=== PATIENT | female | born 1960 | race Caucasian/White ===

== ENCOUNTER 2017-07-03 14:40 | Emergency (ER) | payer OTHER ==
[~2017-07-03] VITALS: Ht 165.1 cm; Wt 106.8 kg
[~2017-07-03 14:40] MED LIST: AMLO5TAB2 PO; ASPI-621 PO; ASPI325T17 PO; CLOP75TA52 PO/NG; INSU100V8 SQ; LEVO150T; LEVO175T2 PO; LINA5TAB; LINAGLIPTIN; LOSA1TAB7 PO; METF-163 PO; SIMV20TA3 PO
[2017-07-03 14:43] VITALS: BP 157/82
[2017-07-03] MEDS ORDERED: LIDOCAINE 1%, 20ML SQ ONE (15:30)
[2017-07-03] MEDS ORDERED: DIPH,PERTUSS(ACELL),TET VAC/PF 0.5 ML IM-VACC ONE ×2 (15:30→15:49)
[2017-07-03] MEDS ORDERED: LIDOCAINE 1%, 20ML ONE (15:48)
[2017-07-03] MEDS ORDERED: BACITRACIN ZINC OINT 500U/GM, 0.9 GM ONE (17:02)
== END 2017-07-03 17:26 | disposition home or self-care (01) ==
LOC: ED 17:10
DX: S91.114A Laceration without foreign body of right lesser toe(s) without damage to nail, initial encounter (principal); S61.214A Laceration without foreign body of right ring finger without damage to nail, initial encounter; S60.151A Contusion of right little finger with damage to nail, initial encounter; E11.9 Type 2 diabetes mellitus without complications; I10 Essential (primary) hypertension; E06.3 Autoimmune thyroiditis; F32.9 Major depressive disorder, single episode, unspecified; W23.0XXA Caught, crushed, jammed, or pinched between moving objects, initial encounter; Z79.01 Long term (current) use of anticoagulants; Z79.82 Long term (current) use of aspirin; Z86.73 Personal history of transient ischemic attack (TIA), and cerebral infarction without residual deficits; X58.XXXA Exposure to other specified factors, initial encounter; Y93.89 Activity, other specified; Y99.8 Other external cause status; Y92.69 Other specified industrial and construction area as the place of occurrence of the external cause
CPT/HCPCS: 12002; 73130; 90471; 90715; 99284; J3490

== ENCOUNTER 2017-10-29 09:10 | Day surgery (SDC) | payer BC | END 2017-10-29 10:43 | LOC: CACL 09:10 | PROVIDERS: ATTEND Internal Medicine Cardiovascular Disease | DX: Z45.09 Encounter for adjustment and management of other cardiac device (principal); I63.9 Cerebral infarction, unspecified; I10 Essential (primary) hypertension; E11.9 Type 2 diabetes mellitus without complications; E03.9 Hypothyroidism, unspecified; K58.9 Irritable bowel syndrome, unspecified; E78.2 Mixed hyperlipidemia; Z79.82 Long term (current) use of aspirin; Z79.84 Long term (current) use of oral hypoglycemic drugs | CPT/HCPCS: 33284 ==

== ENCOUNTER 2020-02-07 06:24 | Emergency (ER) | payer BC, OTHER ==
[~2020-02-07] VITALS: Ht 162.6 cm; Wt 104.6 kg
[~2020-02-07 06:24] MED LIST changes: +AMLO-150 PO; -AMLO5TAB2 PO; -ASPI-621 PO; +ASPI81TA45 PO; +SIMV20TA19 PO; -SIMV20TA3 PO
[2020-02-07] MEDS ORDERED: DIAZEPAM 5 MG TABLET ONE (06:57)
[2020-02-07] MEDS ORDERED: HYDROmorphone 1 MG/ML, 1ML INJ ONE ×2 (06:57→08:53)
[2020-02-07] MEDS ORDERED: HYDROmorphone 1 MG/ML, 1ML INJ IM ONE (07:00)
[2020-02-07] MEDS ORDERED: DIAZEPAM 5 MG TABLET PO ONE (07:00)
--- NOTE | 2020-02-07 07:11 | NUR ---
PT AMBULATORY TO ROOM 14 W/ C/O LOWER BACK PAIN STARTED THURSDAY MORNING AFTER GETTING OOB. PT STATES SHE HAS BEEN WORKING ON HER BACKYARD AND STATES THAT COULD'VE BEEN THE CAUSE OF HER BACK PAIN. DENIES LIFTING ANYTHING HEAVY. PT RESTING ON [facility]. NADN. MONITORS APPLIED. VSS.
--- NOTE | 2020-02-07 08:18 | NUR ---
PT RESTING ON GURNEY. NADN. OWEN.
[2020-02-07] MEDS ORDERED: ONDANSETRON 2MG/ML, 2ML ONE (08:53)
--- NOTE | 2020-02-07 08:58 | NUR ---
PT RESTING ON [facility]. S. PT MEDICATED PER JUL.
[2020-02-07] MEDS ORDERED: HYDROmorphone 1 MG/ML, 1ML INJ IV ONE (09:00)
[2020-02-07] MEDS ORDERED: ONDANSETRON 2MG/ML, 2ML IVPush ONE (09:00)
[2020-02-07 10:02] VITALS: BP 120/64
--- NOTE | 2020-02-07 10:03 | NUR ---
PT RESTING ON GURNEY. NADN. OWEN. PT CHART REVIEWED AND PLACED FOR RECHECK.
[2020-02-07] MEDS ORDERED: methylPREDNISolone SOD SUCC 125 MG/2 ML IVPush ONE (10:30)
== END 2020-02-07 10:41 | disposition home or self-care (01) ==
LOC: ED 07:09
DX: M47.816 Spondylosis without myelopathy or radiculopathy, lumbar region (principal); M54.5 Low back pain; I10 Essential (primary) hypertension; E11.9 Type 2 diabetes mellitus without complications
CPT/HCPCS: 72131; 72148; 96372; 96374; 96375; 99285; J1170; J2405; J7512